=== PATIENT | female | born 1990 | race Caucasian/White ===

== ENCOUNTER 2018-07-09 07:03 | Inpatient (IN) | payer BC ==
[~2018-07-09] VITALS: Ht 162.6 cm; Wt 97.7 kg
[2018-07-09] VITALS (58 sets, daily range): BP systolic 87–135; BP diastolic 50–90; PULSE 55–101; TEMP 97.8–98.6
[2018-07-09] MEDS ORDERED: NATURAL IRON65 MG (07:25)
[2018-07-09 07:52] LABS: BASO % 0.2 % (0.0-2.0); EOS % 0.3 % (0-4.0); GRAN # 6.6 (1.4-6.5); GRAN % 75.4 % (42.2-75.2); HEMOGLOBIN 11.3 g/dl (12.5-16.0); LYMPH # 1.4 (1.2-3.4); LYMPH % 16.5 % (20.0-51.0); MEAN CELL VOLUME 84 fl (80.0-100.0); MEAN CORPUSCULAR HEMOGLOBIN 29 pg (27.0-31.0); MEAN CORPUSCULAR HGB CONC 34 g/dl (33.0-37.0); MEAN PLATELET VOLUME 11.1 fl (7.4-10.4); MONO # 0.6 (0.1-0.6); MONO % 7.1 % (1.7-9.3); PLATELET COUNT 178 K/mm3 (130-400); RED BLOOD COUNT 3.94 M/mm3 (4.10-5.30); REDCELL DISTRIBUTION WIDTH-CV 13.2 % (11.5-14.5)
[2018-07-09 08:01] LABS: HEMATOCRIT 33.1 % (37.0-47.0)
[2018-07-10] VITALS: BP 121/76; PULSE 69
[2018-07-10 02:30] VITALS: BP 117/63; PULSE 67
[2018-07-10 07:05] VITALS: BP 114/70; PULSE 76; TEMP 98.4
[2018-07-10 14:15] VITALS: BP 94/65; PULSE 69; TEMP 98.8
[2018-07-10 20:30] VITALS: BP 119/67; PULSE 74; TEMP 98.6
[2018-07-11 08:13] VITALS: BP 112/69; PULSE 75; TEMP 98.4
[2018-07-11] MEDS ORDERED: PERCOCET 325 MG1 TA2 PO (10:11)
[2018-07-11] MEDS ORDERED: MOTRIN 600600 MG/TAB PO (10:11)
== END 2018-07-11 13:55 | disposition home or self-care (01) | DRG 807 ==
LOC: LDR 07:03 → OB 07-10
PROVIDERS: Obstetrics & Gynecology
PROC: 10E0XZZ Delivery of Products of Conception, External Approach (ICD-10-PCS; principal; 2018-07-09)
PROC: 3E033VJ Introduction of Other Hormone into Peripheral Vein, Percutaneous Approach (ICD-10-PCS; 2018-07-09)
PROC: 10907ZC Drainage of Amniotic Fluid, Therapeutic from Products of Conception, Via Natural or Artificial Opening (ICD-10-PCS; 2018-07-09)
PROC: 0HQ9XZZ Repair Perineum Skin, External Approach (ICD-10-PCS; 2018-07-09)
DX: O48.0 Post-term pregnancy (principal); Z37.0 Single live birth; Z3A.40 40 weeks gestation of pregnancy; O70.0 First degree perineal laceration during delivery; O69.81X0 Labor and delivery complicated by cord around neck, without compression, not applicable or unspecified; Z28.21 Immunization not carried out because of patient refusal
CPT/HCPCS: J2590; J7120